=== PATIENT | male | born 1950 | race Caucasian/White ===

== ENCOUNTER 2017-10-17 08:34 | Day surgery (SDC) | END 2017-10-17 17:34 | disposition home or self-care (01) ==

== ENCOUNTER 2018-07-02 10:21 | Day surgery (SDC) | payer OTHER ==
[~2018-07-02] VITALS: Ht 175.3 cm; Wt 114.0 kg
[2018-07-02] VITALS (12 sets, daily range): BP systolic 118–156; BP diastolic 57–66; PULSE 52–79; RESP 15–23; Ht 175.3 cm; Wt 114.0 kg
[~2018-07-02 10:21] MED LIST: ASPI325T30 PO; CEFAZOLIN 2 GM/50 ML (PMX) 50 ML IVPB ONE; LISI10TA2 PO; RANI75TA13 PO; SOD CHLORIDE 0.9% 1,000 ML IV ONE; ZOC10 PO
[2018-07-02] MEDS ORDERED: LISI10TA2 PO (10:53)
[2018-07-02] MEDS ORDERED: ASPI81TA52 PO (10:54)
[2018-07-02] MEDS ORDERED: SIMV20TA PO (10:54)
[2018-07-02] MEDS ORDERED: TERA5CAP3 PO (10:54)
--- NOTE | 2018-07-02 12:32 | HPN ---
Date/Time of Note Date/Time of Note DATE: 07/02/18 TIME: 12:32 Interval H&P Admission Note Pt. seen H&P reviewed: No system changes ANYA STOCKTON MD Jul 02, 2018 12:32
[2018-07-02] MEDS ORDERED: BUPIVACAINE 0.25%/EPI (SDV) 30 ML INJ ONE (12:33)
--- NOTE | 2018-07-02 12:50 | PREAC ---
Date/Time of Note Date/Time of Note DATE: 07/02/18 TIME: 12:48 Anesthesia Eval and Record Evaluation Time Pre-Procedure Interview DATE: 07/02/18 TIME: 12:48 Age 68 Sex male NPO: 8 hrs Preoperative diagnosis neck mass Planned procedure excision Past Medical History Past Medical History: Includes Cardio: HTN, Dyslipidemia, Other (cardiomyopathy ) Renal: CKD GI: Obesity Surgery & Anesthesia Issues No known issue Meds Anticoagulation: No Beta Clement within 24 hr: No Reason Beta Clement not given: Pt. not on B-Clement Reported Medications Aspirin (Low Dose Aspirin) 81 Mg Tablet.dr, 81 MG PO DAILY, #30 TAB 07/02/18 Terazosin Hcl* (Terazosin Hcl*) 5 Mg Capsule, 5 MG PO HS, CAP 07/02/18 Simvastatin* (Zocor*) 20 Mg Tablet, 20 MG PO QHS, #30 TAB 07/02/18 Lisinopril* (Lisinopril*) 10 Mg Tablet, 10 MG PO DAILY, #30 TAB 07/02/18 Discontinued Reported Medications Aspirin* (Aspirin*) 325 Mg Tablet, 325 MG PO BID, TAB 10/17/17 Simvastatin (Simvastatin) 10 Mg Tablet, 10 MG PO DAILY, #30 TAB 10/17/17 Lisinopril* (Lisinopril*) 10 Mg Tablet, 10 MG PO DAILY, #30 TAB 10/17/17 Ranitidine Hcl* (Zantac*) 75 Mg Tablet, 75 MG PO BID, TAB 10/17/17 Current Medications Cefazolin Sodium/ Dextrose 50 ml @ 100 mls/hr PRE-OP ONCE IVPB ; Start 07/02/18 at 13:30; Stop 07/02/18 at 13:59 Sodium Chloride 1,000 ml @ 75 mls/hr [id number] ONCE IV ; Start 07/02/18 at 06:30; Stop 07/02/18 at 19:49 Meds reviewed: Yes Allergies Coded Allergies: No Known Allergy (Unverified , 07/02/18) Allergies Reviewed: Yes Labs/Studies Labs Reviewed: Reviewed by anesthesiologist test: N/A Pre-procedure Exam Last vitals Vital Signs Date Temp Pulse Resp B/P (MAP) Pulse Ox O2 O2 Flow FiO2 Time Delivery Rate 07/02/18 97.7 52 16 130/58 97 Room Air 11:07 (82) Airway: Adequate mouth opening, Adequate thyromental dist Mallampati: Mallampati III Teeth: Normal Lung: Normal Heart: Normal ASA Physical Status ASA physical status: 3 Emergency: None Pre-operative Attestations Prior to commencing anesthesia and surgery, the patient was re-evaluated, there was verification of: *The patient's identity *The results of appropriate recent lab work and preoperative vital signs *The above evaluation not changing prior to induction *Anesthetic plan, risk benefits, alternative and complications discussed with patient/family; questions answered; patient/family understands, accepts and wishes to proceed. CARLI MCWILLIAMS DO Jul 02, 2018 12:50
[2018-07-02] MEDS ORDERED: FENTAnyl 50 MCG/ML VIAL ONE (12:54)
[2018-07-02] MEDS ORDERED: ETOMIDATE 20 MG INJ ONE (12:54)
[2018-07-02] MEDS ORDERED: PROPOFOL 20 ML ONE ×2 (12:54→13:28)
[2018-07-02] MEDS ORDERED: LIDOCAINE 1% (MDV) 20 ML INJ ONE (12:55)
[2018-07-02] MEDS ORDERED: hydrALAzine 20 MG INJ IV PRN (13:00)
[2018-07-02] MEDS ORDERED: MEPERIDINE 25 MG INJ IV PRN (13:00)
[2018-07-02] MEDS ORDERED: LABETALOL HCL 20MG INJ IV PRN (13:00)
[2018-07-02] MEDS ORDERED: HYDROmorphONE 1 MG/5 ML IV SYRINGE IV PRN ×2 (13:00)
[2018-07-02] MEDS ORDERED: CEFAZOLIN 1 GM INJ ONE (13:05)
[2018-07-02] MEDS ORDERED: PHENYLephrine (100 MCG/ML) 10ML SYG ONE (13:28)
[2018-07-02] MEDS ORDERED: SUCCINYLCHOLINE CHLORIDE 100 MG/5 ML SYG IV ONE (13:28)
[2018-07-02] MEDS ORDERED: ONDANSETRON 4 MG INJ ONE ×2 (13:28→15:12)
[2018-07-02] MEDS ORDERED: EPHEDrine 25 MG/5 ML SYG ONE (13:28)
[2018-07-02] MEDS ORDERED: CEFAZOLIN 2 GM/50 ML (PMX) 50 ML IVPB ONE (13:30)
--- NOTE | 2018-07-02 13:52 | OPR ---
Date/Time of Note Date/Time of Note DATE: 07/02/18 TIME: 13:48 Operative Report Procedure Date: Jul 02, 2018 Preoperative Diagnosis Right posterior neck mass Postoperative Diagnosis Right posterior neck mass Operation/Procedure Performed Excision of right posterior neck mass, subfascial, 5 cm Surgeon see signature line Vice President Of Procurement None Anesthesia Type: general Anesthesiologist: CARLI MCWILLIAMS DO Estimated Blood Loss: minimal Transfusion none Specimen Posterior neck mass Grafts/Implants none Complications none Pt Condition Post Procedure: stable Disposition: PACU Indications Patient is a 68-year-old male with multiple comorbidities who presented to the office complaining of a mass at the posterior right side of the neck for the last several years. He reports that the mass has been growing. He reports that the mass had been causing increasing pain and discomfort. The patient was scheduled for elective excision for symptom relief and definitive pathological diagnosis. All risks and benefits of the procedure including, but not limited to: Wound infection, excessive bleeding, postoperative seroma/hematoma formati on, mass recurrence, etc. were all explained to the patient in full detail. The patient fully understood and wished to proceed with the procedure. Informed consent was obtained. Medical and cardiac clearance were obtained prior to surgery. Procedure Description The patient was brought to the operating room and placed supine on the operating table. Bilateral sequential compression devices were placed on both lower extremities. A dose of broad-spectrum perioperative intravenous antibiotics was given. The mass which was located in the right posterior neck was preoperatively marked and confirmed with the patient in the holding area. After achieving adequate general anesthesia the patient was positioned with the head turned to the left in order to expose the mass. Area was then prepped and draped in standard surgical fashion. After performance of the surgical timeout, 0.25% Marcaine with epinephrine was injected over the area of the mass. A small incision was made over the mass using a 15 blade scalpel. The incision was carried down through the skin and dermis into the subcutaneous tissues. The fascia was identified and incised. Subfascial lipomatous neoplasm was identified. It was dissected free of surrounding tissues and delivered through the incision. It was transected at its base and passed off the field as specimen. It measured approximately 5 cm in maximal dimension. The wound cavity was then irrigated and the irrigant returned clear. Hemostasis was inspected for and noted to be total. Further local anesthesia was injected around the incision site. Incision was then closed in layers using interrupted 3-0 Vicryl sutures for the dermal layer. The skin was reapproximated using a running subcuticular 4-0 Monocryl suture. Incision was cleaned and Dermabond was applied. The patient was awoken from anesthesia and transferred to the recovery room in stable condition. All counts were correct at the end the case x2. ANYA STOCKTON MD Jul 02, 2018 13:52
[2018-07-02] MEDS ORDERED: ONDANSETRON 4 MG INJ IV PRN (14:00)
[2018-07-02] MEDS ORDERED: ACETAMINOPHEN 325 MG TAB PO PRN (14:00)
--- NOTE | 2018-07-02 14:01 | PAC ---
Date/Time of Note Date/Time of Note DATE: 07/02/18 TIME: 14:00 Post-Anesthesia Notes Post-Anesthesia Note Last documented vital signs Vital Signs Date Temp Pulse Resp B/P (MAP) Pulse Ox O2 O2 Flow FiO2 Time Delivery Rate 07/02/18 98 75 19 139/63 97 Room Air 1400 Activity: WNL Respiratory function: WNL Cardiovascular function: WNL Mental status: Baseline Pain reasonably controlled: Yes Hydration appropriate: Yes Nausea/Vomiting absent: Yes CARLI MCWILLIAMS DO Jul 02, 2018 14:01
[2018-07-02] MEDS ORDERED: ROPIVACAINE 0.5 % 30 ML VIAL ONE (15:19)
[2018-07-02] MEDS ORDERED: GLYCOPYRROLATE 0.4 MG INJ ONE (15:50)
[2018-07-02] MEDS ORDERED: NEOSTIGMINE 3 MG/3 ML SYRINGE ONE (15:50)
== END 2018-07-02 15:55 | disposition home or self-care (01) ==
LOC: SDS 10:21
PROVIDERS: ATTEND Surgery
DX: D17.0 Benign lipomatous neoplasm of skin and subcutaneous tissue of head, face and neck (principal); E78.5 Hyperlipidemia, unspecified; E66.9 Obesity, unspecified; I12.9 Hypertensive chronic kidney disease with stage 1 through stage 4 chronic kidney disease, or unspecified chronic kidney disease; N18.9 Chronic kidney disease, unspecified
CPT/HCPCS: 21554; 88307; J0690; J2370; J2405; J3010; Z7512; Z7610; J2710; J2795